=== PATIENT | male | born 1985 | race Caucasian/White ===

== ENCOUNTER 2025-01-31 20:55 | Emergency (ER) | payer SELFPAY ==
[2025-01-31] MEDS ORDERED: Ibuprofen 600 MG Tab PO ONE (21:15)
[2025-01-31] MEDS: Lidocaine 2% Viscous Solution 15 ML UD PO ONE (21:26)
[2025-01-31] MEDS: Ketorolac 30 MG/ML SDV IM ONE (21:28)
[2025-01-31] MEDS: Acetaminophen 500 MG Tab PO ONE (21:28)
[2025-01-31] MEDS: Dexamethasone 4 MG Tab PO ONE (21:29)
[2025-01-31] MEDS: Amoxicillin/Clavulanate K 875-125 MG Tab PO ONE (23:08)
== END 2025-01-31 23:08 | disposition home or self-care (01) ==
LOC: MW.ED 20:55
DX: J02.0 Streptococcal pharyngitis (principal); Z79.899 Other long term (current) drug therapy
CPT/HCPCS: 87428; 87651; 96372; 99284; A9270; J1885; J8540; 99283